=== PATIENT | male | born 1975 | race Caucasian/White ===

== ENCOUNTER 2016-11-19 19:57 | Emergency (ER) | payer OTHER | END 2016-11-19 21:56 | disposition other institution (70) | LOC: ED 19:57 | DX: Z02.89 Encounter for other administrative examinations (principal) ==

== ENCOUNTER 2016-11-19 19:57 | Emergency (ER) | payer OTHER ==
[2016-11-19 20:48] LABS: BASOPHIL % 0.4 % (0-2); PLATELET COUNT 218 x10^3mcL (130-400); RED CELL DISTRIBUTION WIDTH 13.7 % (11.5-14.5)
[2016-11-19 20:59] LABS: CALCIUM 8.9 mg/dL (8.5-10.1); CARBON DIOXIDE 26.1 mmol/L (21-32); CHLORIDE SERUM 102 mmol/L (98-107); CREATININE SERUM 0.9 mg/dL (0.7-1.3); GFR1 > 60 mL/min; GLUCOSE SERUM 70 mg/dL (74-106); POTASSIUM SERUM 4.4 mmol/L (3.5-5.1); SODIUM SERUM 141 mmol/L (136-145)
[2016-11-19 21:24] LABS: ALBUMIN 4.1 g/dL (3.4-5.0); ALKALINE PHOSPHATASE 67 U/L (46-116); ALT/SGPT 157 U/L (16-63); AST/SGOT 172 U/L (15-37); BILIRUBIN TOTAL 0.68 mg/dL (0.20-1.00); TOTAL PROTEIN, SERUM 7.8 g/dL (6.4-8.2)
[2016-11-19 21:56] VITALS: BP 150/105
== END 2016-11-19 21:56 | disposition other institution (70) ==
LOC: ED 19:57
PROVIDERS: Emergency Medicine
DX: I10 Essential (primary) hypertension (principal); R42 Dizziness and giddiness

== ENCOUNTER 2018-11-04 08:40 | Emergency (ER) | payer OTHER ==
[~2018-11-04] VITALS: Ht 180.3 cm; Wt 92.1 kg
[2018-11-04 08:55] VITALS: Ht 180.3 cm; Wt 92.1 kg
[2018-11-04 11:00] VITALS: BP 146/72
== END 2018-11-04 11:00 | disposition home or self-care (01) ==
LOC: ED 08:40
DX: M70.22 Olecranon bursitis, left elbow (principal); I10 Essential (primary) hypertension; Y93.89 Activity, other specified
CPT/HCPCS: J1885; Q0092

== ENCOUNTER 2018-11-07 10:29 | Emergency (ER) | payer OTHER ==
[~2018-11-07] VITALS: Ht 180.3 cm; Wt 92.2 kg
[2018-11-07 10:44] VITALS: BP 148/89; Ht 180.3 cm; Wt 92.2 kg
== END 2018-11-07 11:49 | disposition home or self-care (01) ==
LOC: ED 10:29
DX: M70.22 Olecranon bursitis, left elbow (principal); I10 Essential (primary) hypertension; Z88.0 Allergy status to penicillin
CPT/HCPCS: J0696

== ENCOUNTER 2019-01-06 02:29 | Emergency (ER) | payer OTHER ==
[~2019-01-06] VITALS: Ht 180.3 cm; Wt 87.5 kg
[2019-01-06 02:36] VITALS: Ht 180.3 cm; Wt 87.5 kg
[2019-01-06 03:54] VITALS: BP 111/66
== END 2019-01-06 03:54 | disposition home or self-care (01) ==
LOC: ED 02:29
DX: I10 Essential (primary) hypertension (principal); F10.20 Alcohol dependence, uncomplicated; Z76.0 Encounter for issue of repeat prescription; F17.210 Nicotine dependence, cigarettes, uncomplicated; Z71.6 Tobacco abuse counseling
CPT/HCPCS: 82962